=== PATIENT | female | born 1945 | race Caucasian/White ===

== ENCOUNTER 2018-04-06 13:50 | Outpatient (CLI) | payer MEDICARE ==
--- NOTE | 2018-04-06 15:15 | MRI ---
CERVICAL SPINE MRI WITHOUT CONTRAST: Date: 04/06/18 HISTORY: Cervical radiculopathy. Neck pain radiating to right shoulder x2 weeks. Injury. COMPARISON: None. TECHNIQUE: Cervical spine MRI is performed without intravenous Gadolinium administration. Multisequential, multi planar imaging is performed. FINDINGS: Appropriate T1 marrow signal intensity of the cervical vertebra. Vertebral body height is maintained. No fracture. 1.8 mm anterolisthesis of C2 upon C3, 2.0 mm anterolisthesis of C4 upon C4, and 1.4 mm anterolisthesis of C7 upon T1. Vertebral body heights are maintained. There is no fracture. No signif icant STIR hyperintensity to suggest edema or ligamentous injury. Visualized brain parenchyma, cervicomedullary junction, cervical cord, and the upper thoracic cord cook ve a normal size and signal intensity. C2-C3: No significant disc osteophyte complex. No significant central canal stenosis or foraminal narrowing. C3-C4: No significant disc osteophyte complex. No significant central canal stenosis. Neural foramina are pa tent. C4-C5: There is a minimal central disc bulge. No significant central canal stenosis. Foramina are patent. C5-C6: Desiccation with moderate loss of disc space height. There is a central/right paracentral disc osteop hyte complex. Mild to moderate narrowing of the right aspect of the central spinal canal with deformi ty of the right aspect of the cervical cord. No T2 hyperintensity of the cord. Mild to moderate centr al canal stenosis. Neural foramina are patent bilaterally. C6-C7: Desiccation with mild loss of disc space height. Generalized disc osteophyte complex with at least mi ld central canal stenosis. Mild right foraminal narrowing due to degenerative change of the uncoverte bral joint. Minimal left foraminal narrowing due to degenerative change of the uncovertebral joint. C7-T1: Central disc osteophyte complex abuts the thecal sac. There is effacement of the ventral subarachnoid space along the midline aspect of the central spinal canal. Mild central canal stenosis. Neural fora jose are patent bilaterally. IMPRESSION: Degenerative changes of the cervical spine as above. POS: [facility]
== END 2018-04-06 13:51 | disposition home or self-care (01) ==
LOC: SCSMRI 13:50
PROVIDERS: ATTEND Family Medicine
DX: M47.22 Other spondylosis with radiculopathy, cervical region (principal)
CPT/HCPCS: 72141